=== PATIENT | male | born 1950 | race Caucasian/White ===

== ENCOUNTER 2022-05-26 10:33 | Emergency (ER) | payer OTHER, SELFPAY ==
[2022-05-26 10:52] VITALS: BP 124/76; PULSE 78; RESP 16; TEMP 36.5; O2SAT 96; BMI 38.8
--- NOTE | 2022-05-26 11:10 | CRLHL7_ITS ---
For Patients: As a result of the Cures Act, medical imaging exams and procedure reports are released immediately into your electronic medical record. You may view this report before your referring provider. If you have questions, please contact your health care provider. INDICATION: Cough. TECHNIQUE: Chest 2 views. IMPRESSION: Cardiomegaly. Normal pulmonary vascularity. There is a small nodular opacity at the right lung base. Not clearly present on the prior exam February 06, 2021. Consider a CT scan of the chest were follow-up exam for further characterization. Single lead right ventricular pacemaker left-sided generator satisfactory position no change. No effusions. No consolidation or pneumothorax. Dictated by Troy Borja MD @ 05/26/2022 12:02:59 PM (Electronically Signed)
--- NOTE | 2022-05-26 11:11 | ED.GENADULT ---
HPI - General Adult General Chief complaint: Cough Stated complaint: Lung infection/eye issue Time Seen by Provider: 05/26/22 11:00 History of Present Illness HPI narrative: This 71-year-old male comes in reporting upper respiratory symptoms for the past 5 days. He reports fevers and chills initially. He has cough and has reported some wheezing. He also reports some matting and discharge from his right eye today. He arrives with normal vital signs. Related Data Home Medications Medication Instructions Recorded Confirmed acetaminophen 300 mg-codeine 60 mg 1 tab PO PRN 05/26/22 tablet atorvastatin 80 mg tablet 80 mg PO DAILY 05/26/22 05/26/22 carvedilol 25 mg tablet 25 mg PO Q12H 05/26/22 05/26/22 losartan 100 mg tablet 100 mg PO DAILY 05/26/22 05/26/22 metformin 500 mg tablet,extended 500 mg PO DAILY 05/26/22 05/26/22 release 24 hr Previous Rx's Medication Instructions Recorded polymyxin B sulfate 10,000 1 drp ophthalmic (eye) Q3H 7 days 05/26/22 unit-trimethoprim 1 mg/mL eye #10 mL drops (Polytrim) Allergies Allergy/AdvReac Type Severity Reaction Status Date / Time lisinopril Allergy Mild Agitated Verified 05/26/22 10:59 Review of Systems Status of ROS: Reports: 10 or more systems reviewed and unremarkable except as noted in History and below Narrative: Constitutional: No fevers, no weight gain or loss. Eyes: No vision changes. Purulent discharge from the right eye. HENT: No congestion, no sore throat, no ear pain. Cardiovascular: No chest pain, no palpitations. Respiratory: No shortness of breath. He reports cough and wheezing. Gastrointestinal: No abdominal pain, no vomiting, no diarrhea. Genitourinary: No dysuria, no hematuria. Musculoskeletal: Normal range of motion. Skin: No rashes, no pruritis. Neurological: No dizziness, weakness, sensory change, speech change. Endo/Heme/Allergies: No bruising or bleeding. No polydipsia. Pysch: no suicidality, no anxiety, no insomnia. All other systems reviewed and are negative. PFSH PFSH Social History Smoking Status: Smoker, status unknown Non-prescribed substance use: denies use Exam Narrative: Exam Narrative: Constitutional: Well-developed, well-nourished, no acute distress. HEENT: Normocephalic, atraumatic. Right eye is injected with some matting and purulent discharge. Neck: Normal range of motion. Nontender. Supple. Heart: Regular. No murmurs. Normal rate. Intact distal pulses. Lungs: Clear to auscultation. No chest discomfort. No wheezes, rhonchi, or rales. Abdomen: Normal bowel sounds. Nontender. No rebound tenderness. Genitalia: Deferred. Back: No midline tenderness. Normal range of motion. Extremities: Normal range of motion. No injury. Skin: Intact. No rash. Warm. No erythema or pallor. Neurologic: No altered sensation. No weakness. Alert and oriented. Psychiatric: No suicidality. No anxiety or depression. No insomnia. Nursing notes and vitals signs are reviewed. Const: Vital Signs, click to edit/add: Vital Signs - 24 hr 05/26/22 10:52 Temperature 97.7 F Pulse Rate [Left P ulse Oximeter] 78 Respiratory Rate 16 Blood Pressure [Ri ght Upper Arm] 124/76 Pulse Oximetry 96 Oxygen Delivery Me thod Room Air Course Vital Signs Vital signs: Initial Vital Signs Temperature 97.7 F 05/26/22 10:52 Temperature Source Temporal Artery Scan 05/26/22 10:52 Pulse Rate 78 05/26/22 10:52 Pulse Rhythm 05/26/22 10:52 Respiratory Rate 16 05/26/22 10:52 Blood Pressure 124/76 05/26/22 10:52 Blood Pressure Mean 92 05/26/22 10:52 Blood Pressure Position Sitting 05/26/22 10:52 Pulse Oximetry 96 05/26/22 10:52 Oxygen Delivery Method 05/26/22 10:52 Vital Signs Temperature 97.7 F 05/26/22 10:52 Pulse Rate 78 05/26/22 10:52 Respiratory Rate 16 05/26/22 10:52 Blood Pressure 124/76 05/26/22 10:52 Pulse Oximetry 96 05/26/22 10:52 Oxygen Delivery Method 05/26/22 10:52 Temperature 97.7 F 05/26/22 10:52 Pulse Rate 78 05/26/22 10:52 Respiratory Rate 16 05/26/22 10:52 Blood Pressure 124/76 05/26/22 10:52 Pulse Oximetry 96 05/26/22 10:52 Oxygen Delivery Method 05/26/22 10:52 Medical Decision Making MDM Narrative Medical decision making narrative: This patient comes in with upper respiratory symptoms as described above. He also has some purulent eye drainage typical of bacterial conjunctivitis. Nasal pharyngeal swab is negative for COVID, influenza, and RSV. Chest x-ray also is negative for pneumonia but there was suspicion of a nodule in the right lower lateral lobe. A CT scan is recommended which was ordered and returns with no such nodule in the lungs. This may have been a nipple shadow causing this image. At the time of discharge the patient appears safe for outpatient management. The treatment plan is reviewed along with written and verbal return precautions. Reasons to return and the importance of close followup were also reviewed. He received a prescription for Polytrim. Lab Data Labs: Lab Results 05/26/22 Range/Units 11:10 SARS-CoV-2 (PCR) Negative SARS-CoV-2 (Negative) Influenza Type A (PCR) Negative PCR FLU A (Negative) Influenza Type B (PCR) Negative PCR FLU B (Negative) RSV (PCR) Negative PCR RSV (Negative) Imaging Data CT scan - chest: Radiologist's impression: 1. No suspicious pulmonary nodules. The nodular opacity characterized on earlier same day chest radiography likely represents a nipple shadow. 2. Sequela of healed granulomatous disease. 3. Coronary artery disease. Discharge Plan Discharge Clinical Impression: Acute upper respiratory infection, Conjunctivitis Patient Disposition: Home, Self-Care Condition: Stable Additional Instructions: Take medication as indicated. Follow up with MD or return if worsening. Prescriptions: New polymyxin B sulf-trimethoprim [Polytrim] 10,000 unit- 1 mg/mL drops 1 drp ophthalmic (eye) Q3H 7 Days Qty: 10 0RF Rx Instructions: while awake; do not exceed 6 doses in 24 hours No Action acetaminophen-codeine 300-60 mg tablet 1 tab PO PRN Label Comments: TAKE 1 TABLET BY MOUTH EVERY SIX HOURS NEEDED FOR PAIN . LIMIT ACETAMINOPHEN TO 4000 MG PER DAY FROM ALL SOURCES. atorvastatin 80 mg tablet 80 mg PO DAILY Label Comments: TAKE ONE TABLET BY MOUTH ONE TIME DAILY carvedilol 25 mg tablet 25 mg PO Q12H Label Comments: Take 1 Tablet (25 mg) by mouth 2 times daily with meals. losartan 100 mg tablet 100 mg PO DAILY Label Comments: TAKE ONE TABLET BY MOUTH ONE TIME DAILY metformin 500 mg tablet extended release 24 hr 500 mg PO DAILY Label Comments: TAKE ONE TABLET BY MOUTH EVERY MORNING with breakfast Follow Up/Referrals: Provider,Not a Local [Primary Care Provider] - Stand Alone Forms: [facility] Info Instructions
[2022-05-26] MEDS: dexAMETHasone 10 MG/ML inj PO (12:13)
[2022-05-26 13:35] LABS: PCR FLU A Negative PCR FLU A (Negative); PCR FLU B Negative PCR FLU B (Negative); PCR RSV Negative PCR RSV (Negative)
[2022-05-26 13:38] LABS: SARS PCR* Negative SARS-CoV-2 (Negative)
--- NOTE | 2022-05-26 13:38 | CRLHL7_ITS ---
For Patients: As a result of the Century Cures Act, medical imaging exams and procedure reports are released immediately into your electronic medical record. You may view this report before your referring provider. If you have questions, please contact your health care provider. INDICATION: Pulmonary nodule seen on chest x-ray. TECHNIQUE: CT chest without intravenous contrast. Coronal and sagittal reformats. COMPARISON: Earlier same day chest radiographs. FINDINGS: The central airways are patent. Few 2-3 mm noncalcified pulmonary nodules. No suspicious pulmonary nodules. No pneumothorax or pleural effusion. Normal cardiac size. Heavy coronary artery calcification. No pericardial effusion. No thoracic lymphadenopathy. Subcarinal and right hilar calcified nodes. Left chest wall cardiac pacing device with lead terminating in the right ventricular apex. Thyroid unremarkable. The imaged upper abdomen demonstrates tiny hepatic and splenic calcified granulomas. No suspicious osseous lesion. IMPRESSION: 1. No suspicious pulmonary nodules. The nodular opacity characterized on earlier same day chest radiography likely represents a nipple shadow. 2. Sequela of healed granulomatous disease. 3. Coronary artery disease. Dictated by Chase Jackson MD @ 05/26/2022 2:53:16 PM Please note that all CT scans at this facility use dose modulation, iterative reconstruction, and/or weight-based dosing when appropriate to reduce radiation dose to as low as reasonably achievable. Dictated by: Chase Jackson MD @ 05/26/2022 14:53:23 (Electronically Signed)
== END 2022-05-26 15:20 | disposition home or self-care (01) ==
PROVIDERS: Emergency Provider Emergency Medicine Emergency Medical Services
DX: J06.9 Acute upper respiratory infection, unspecified (principal); H10.9 Unspecified conjunctivitis
CPT/HCPCS: 71046; 71250; 87502; 87634; 87635; 99284; J1100